=== PATIENT | male | born 1985 | race Caucasian/White ===

== ENCOUNTER 2018-05-10 10:39 | Emergency (ER) | payer MEDICAID ==
[~2018-05-10] VITALS: Ht 175.3 cm; Wt 65.0 kg
[2018-05-10 10:50] VITALS: BP 125/90
--- NOTE | 2018-05-10 12:16 | NUR ---
NEW ORDERS, IV ESTABLISHED, PATIENT [id number]. AWAITING MRI,
[2018-05-10] MEDS ORDERED: GADOBUTROL 7.5 MMOL/7.5 ML PFS ONE (12:53)
--- NOTE | 2018-05-10 14:17 | NUR ---
Patient/Caregiver given discharge instructions and they have confirmed that they understand the instructions. Patient ambulatory with steady gait.
== END 2018-05-10 14:18 | disposition home or self-care (01) ==
LOC: ED 14:12
DX: R20.2 Paresthesia of skin (principal); M25.532 Pain in left wrist
CPT/HCPCS: 29260; 70553; 73110; 99284; A9585